=== PATIENT | male | born 1950 | race Caucasian/White ===

== ENCOUNTER 2023-03-31 14:40 | Observation (INO) | payer MEDICARE, OTHER ==
[~2023-03-31] VITALS: Ht 177.8 cm; Wt 108.9 kg
[2023-03-31 14:59] VITALS: BP_SYST 108; PULSE 63; RESP 19; TEMP 97.7; O2SAT 96
[2023-03-31] MEDS ORDERED: guaiFENesin/DEXTROMETHORPHAN 10 ML UDC PO ONE ×2 (15:15→17:00)
[2023-03-31] MEDS ORDERED: IBUPROFEN 800 MG TABLET PO ONE (16:30)
[2023-03-31] MEDS ORDERED: PHENAZOPYRIDINE HCL 100 MG TABLET PO ONE (16:30)
[2023-03-31 18:20] LABS: INFLUENZA TYPE A negative (NEGATIVE); INFLUENZA TYPE B NEGATIVE (NEGATIVE)
[2023-03-31] MEDS ORDERED: NACL 0.9% 1,000 ML IV ONE ×2 (18:30→19:45)
[2023-03-31 18:54] LABS: BASOPHILS # (AUTO) 0.1 K/uL (0.0-0.2); BASOPHILS % (AUTO) 0.5 % (0.0-2.0); EOSINOPHILS % (AUTO) 0.4 % (0.0-4.0); HEMOGLOBIN 15.5 g/dL (14.0-18.0); LYMPHOCYTES # (AUTO) 1.5 K/uL (1.0-5.5); LYMPHOCYTES % (AUTO) 12.3 % (20.5-51.5); MEAN CORPUSCULAR HEMOGLOBIN 32 pg (27-31); MEAN CORPUSCULAR HGB CONC 34 % (32-36); MEAN CORPUSCULAR VOLUME 94 fL (79.0-98.0); MONOCYTES # (AUTO) 0.6 K/uL (0.0-1.0); MONOCYTES % (AUTO) 4.8 % (1.7-9.3); PLATELET COUNT (AUTO) 205 K/uL (130-430); RED BLOOD CELL COUNT(AUTO) 4.91 MIL/uL (4.2-6.2); RED CELL DISTRIBUTION WIDTH 14.8 % (9.0-15.0); WHITE BLOOD COUNT (AUTO) 12.2 K/uL (4.8-10.8)
[2023-03-31 19:18] LABS: ALBUMIN 3.9 g/dL (3.4-4.8); ANION GAP 8 (5-15); ASPARTATE AMINOTRANSFERASE 12 U/L (10-37); CARBON DIOXIDE 27 mmol/L (23-29); CHLORIDE 101 mmol/L (98-107); CREATININE 1.59 mg/dL (0.55-1.30); FREE T4 (FREE THYROXINE) 1.2 ng/dl (0.8-1.5); GLUCOSE 102 mg/dL (74-106); POTASSIUM 4.7 mmol/L (3.5-5.1); SODIUM SERUM 136 mmol/L (136-145); THYROID STIMULATING HORMONE 3.51 uIu/mL (0.36-3.74); TOTAL BILIRUBIN 1.3 mg/dL (0.0-1.0); TOTAL PROTEIN, SERUM 7.3 g/dL (6.4-8.3); UREA NITROGEN, BLOOD 23 mg/dL (8-21)
[2023-03-31 19:52] LABS: ALANINE AMINOTRANSFERASE 7 U/L (12-78)
[2023-03-31] MEDS ORDERED: LOPERAMIDE HCL 2 MG CAPSULE PO ONE (20:30)
[2023-03-31] MEDS ORDERED: SIMV-345 PO (20:49)
[2023-03-31] MEDS ORDERED: CHOL200075 PO (20:49)
[2023-03-31] MEDS ORDERED: TOPXL100 PO (20:49)
[2023-03-31] MEDS ORDERED: ASPI-858 PO (20:49)
[2023-03-31] MEDS ORDERED: LOSA-415 PO (20:49)
[2023-03-31] MEDS ORDERED: ACET-2634 PO (20:49)
[2023-03-31] MEDS ORDERED: MELA10TA2 PO (20:49)
[2023-03-31] MEDS ORDERED: D5/0.45 NS 1,000 ML IV ONE (23:00)
[2023-04-01] MEDS ORDERED: ACETAMINOPHEN 500 MG TABLET PO PRN (06:45)
[2023-04-01 07:41] LABS: ALBUMIN 3.1 g/dL (3.4-4.8); ANION GAP 9 (5-15); ASPARTATE AMINOTRANSFERASE 10 U/L (10-37); CALCIUM 8.5 mg/dL (8.4-11.0); CARBON DIOXIDE 24 mmol/L (23-29); CHLORIDE 102 mmol/L (98-107); CREATININE 1.76 mg/dL (0.55-1.30); GLUCOSE 110 mg/dL (74-106); POTASSIUM 3.4 mmol/L (3.5-5.1); SODIUM SERUM 135 mmol/L (136-145); TOTAL BILIRUBIN 0.7 mg/dL (0.0-1.0); UREA NITROGEN, BLOOD 29 mg/dL (8-21)
[2023-04-01 08:25] LABS: ALANINE AMINOTRANSFERASE 3 U/L (12-78)
[2023-04-01] MEDS: ASPIRIN 325 MG TABLET PO SCH (09:13)
[2023-04-01] MEDS: SIMVASTATIN 40 MG TABLET PO SCH (09:14)
[2023-04-01 12:15] VITALS: BP_SYST 148; PULSE 50; RESP 16; TEMP 97.7
[2023-04-01 12:57] VITALS: PULSE 50; RESP 16; TEMP 97.9; O2SAT 98
[2023-04-01 17:30] VITALS: BP_SYST 121; PULSE 58; RESP 18; TEMP 97.8; O2SAT 96
[2023-04-01 20:00] VITALS: BP_SYST 127; PULSE 49; RESP 18; TEMP 97.8; O2SAT 98
[2023-04-02 00:48] VITALS: BP_SYST 141; PULSE 53; RESP 18; TEMP 97.2; O2SAT 98
[2023-04-02 08:29] VITALS: BP_SYST 143; PULSE 54; RESP 18; TEMP 97; O2SAT 97
[2023-04-02] MEDS ORDERED: METOPROLOL SUCCINATE 50 MG TAB.SR.24H (TOPROL XL) PO SCH (09:00)
[2023-04-02] MEDS: ASPIRIN 325 MG TABLET PO SCH (09:05)
[2023-04-02] MEDS: SIMVASTATIN 40 MG TABLET PO SCH (09:05)
[2023-04-02] MEDS: D5/0.45 NS 1,000 ML IV SCH (12:54)
[2023-04-02] MEDS: METOPROLOL SUCCINATE 50 MG TAB.SR.24H (TOPROL XL) PO SCH (13:03)
[2023-04-02 19:41] VITALS: BP_SYST 121; BP_SYST 123; PULSE 54; PULSE 60; PULSE 63
[2023-04-02 21:15] VITALS: BP_SYST 132; BP_SYST 133; PULSE 52; PULSE 55; RESP 18; TEMP 98.6; O2SAT 99
[2023-04-02 23:14] LABS: BILIRUBIN,URINE NEGATIVE (NEGATIVE); BLOOD, URINE NEGATIVE (NEGATIVE); CLARITY/URINE Clear (CLEAR); COLOR,URINE YELLOW (YELLOW); GLUCOSE,URINE NEGATIVE (NEGATIVE); KETONES,URINE NEGATIVE (NEGATIVE); LEUKOCYTE ESTERASE ,URINE NEGATIVE (NEGATIVE); NITRITE, URINE NEGATIVE (NEGATIVE); PH,URINE 6.5 (5.0-8.0); PROTEIN URINE NEGATIVE (NEGATIVE); UROBILINOGEN,URINE 0.2 (0.2-1.0)
[2023-04-03 00:15] VITALS: BP_SYST 117; PULSE 50; RESP 18; TEMP 98.4; O2SAT 98
[2023-04-03 00:16] VITALS: BP_SYST 100; PULSE 50; RESP 18; O2SAT 98
[2023-04-03 00:17] VITALS: BP_SYST 132; PULSE 61
[2023-04-03] MEDS: D5/0.45 NS 1,000 ML IV SCH ×2 (03:43→11:13)
[2023-04-03 08:16] VITALS: BP_SYST 159; PULSE 55; RESP 19; TEMP 97.9; O2SAT 100
[2023-04-03] MEDS: ASPIRIN 325 MG TABLET PO SCH (08:35)
[2023-04-03] MEDS: SIMVASTATIN 40 MG TABLET PO SCH (08:35)
[2023-04-03] MEDS: METOPROLOL SUCCINATE 50 MG TAB.SR.24H (TOPROL XL) PO SCH (08:37)
[2023-04-03] MEDS ORDERED: METO-542 PO (11:23)
[2023-04-03] MEDS ORDERED: AMLO2.5T2 PO (11:26)
[2023-04-03 12:52] VITALS: BP_SYST 142; PULSE 58; RESP 18; TEMP 98.1; O2SAT 97
[2023-04-03 14:34] LABS: ALBUMIN 3.4 g/dL (3.4-4.8); ANION GAP 7 (5-15); ASPARTATE AMINOTRANSFERASE 12 U/L (10-37); CALCIUM 8.5 mg/dL (8.4-11.0); CARBON DIOXIDE 27 mmol/L (23-29); CHLORIDE 103 mmol/L (98-107); CREATININE 1.72 mg/dL (0.55-1.30); GLUCOSE 112 mg/dL (74-106); SODIUM SERUM 137 mmol/L (136-145); THYROID STIMULATING HORMONE 2.73 uIu/mL (0.34-4.82); TOTAL BILIRUBIN 0.4 mg/dL (0.0-1.0); TOTAL PROTEIN, SERUM 6.5 g/dL (6.4-8.3); UREA NITROGEN, BLOOD 24 mg/dL (8-21)
[2023-04-03 14:44] LABS: ALANINE AMINOTRANSFERASE 5 U/L (12-78)
[2023-04-03 15:50] VITALS: BP_SYST 149; PULSE 82; RESP 18; TEMP 97.9; O2SAT 100
== END 2023-04-03 16:15 | disposition home or self-care (01) ==
LOC: SED 14:40 → INTOOBSV 22:55 → STU 22:55
PROVIDERS: ADMIT Specialist; ATTEND Specialist
DX: R42 Dizziness and giddiness (principal); Z20.822 Contact with and (suspected) exposure to COVID-19; R00.1 Bradycardia, unspecified; E86.0 Dehydration; I10 Essential (primary) hypertension; E78.5 Hyperlipidemia, unspecified; J44.9 Chronic obstructive pulmonary disease, unspecified; N28.9 Disorder of kidney and ureter, unspecified; F10.11 Alcohol abuse, in remission; R91.1 Solitary pulmonary nodule; Z87.891 Personal history of nicotine dependence; Z79.82 Long term (current) use of aspirin; Z79.899 Other long term (current) drug therapy
CPT/HCPCS: 80053 ×3; 83880; 84439; 84443 ×2; 85025; 84484; 36415 ×3; 93005 ×2; 71045; 99285; 96360; 87804 ×2; 87426; 96361 ×3; 93306; 97530 ×2; 97116 ×2; 97163; 81003; 97110; G0378 ×4

== ENCOUNTER 2023-04-07 04:07 | Emergency (ER) | payer OTHER ==
[~2023-04-07] VITALS: Ht 177.8 cm; Wt 90.7 kg
[~2023-04-07 04:07] MED LIST: ACET-2634 PO; AMLO2.5T2 PO; ASPI-858 PO; CHOL200075 PO; LOSA-415 PO; MELA10TA2 PO; METO-542 PO; SIMV-345 PO
[2023-04-07] MEDS ORDERED: MORPHINE 4 MG INJ. 4 MG/ML VIAL IVP ONE (04:23)
[2023-04-07] MEDS ORDERED: NITROGLYCERIN 1 INCH (GM) OINT. TP ONE (04:23)
[2023-04-07 04:27] VITALS: BP_SYST 139; PULSE 106; RESP 18; TEMP 98; O2SAT 97
[2023-04-07] MEDS ORDERED: ASPIRIN 325 MG TABLET PO ONE (04:30)
[2023-04-07 05:30] LABS: BASOPHILS # (AUTO) 0.1 K/uL (0.0-0.2); BASOPHILS % (AUTO) 0.7 % (0.0-2.0); EOSINOPHILS % (AUTO) 0.2 % (0.0-4.0); HEMATOCRIT 37.7 % (36-54); HEMOGLOBIN 12.8 g/dL (14.0-18.0); LYMPHOCYTES # (AUTO) 0.9 K/uL (1.0-5.5); LYMPHOCYTES % (AUTO) 9.9 % (20.5-51.5); MEAN CORPUSCULAR HEMOGLOBIN 32 pg (27-31); MEAN CORPUSCULAR HGB CONC 34 % (32-36); MEAN CORPUSCULAR VOLUME 94 fL (79.0-98.0); MONOCYTES # (AUTO) 0.6 K/uL (0.0-1.0); MONOCYTES % (AUTO) 7.3 % (1.7-9.3); NEUTROPHILS # (AUTO) 7.2 K/uL (1.8-7.7); NEUTROPHILS % (AUTO) 81.9 % (40.0-70.0); PLATELET COUNT (AUTO) 182 K/uL (130-430); RED BLOOD CELL COUNT(AUTO) 4.02 MIL/uL (4.2-6.2); WHITE BLOOD COUNT (AUTO) 8.8 K/uL (4.8-10.8)
[2023-04-07] MEDS ORDERED: ESCI-6 PO (05:38)
[2023-04-07 05:42] LABS: ANION GAP 10 (5-15); CALCIUM 8.2 mg/dL (8.4-11.0); CARBON DIOXIDE 24 mmol/L (23-29); CHLORIDE 104 mmol/L (98-107); CREATININE 1.85 mg/dL (0.55-1.30); GLUCOSE 106 mg/dL (74-106); POTASSIUM 3.9 mmol/L (3.5-5.1); SODIUM SERUM 138 mmol/L (136-145); UREA NITROGEN, BLOOD 23 mg/dL (8-21)
[2023-04-07 05:49] LABS: ALANINE AMINOTRANSFERASE 6 U/L (12-78); ALBUMIN 3.1 g/dL (3.4-4.8); ASPARTATE AMINOTRANSFERASE 12 U/L (10-37); TOTAL BILIRUBIN 0.6 mg/dL (0.0-1.0)
[2023-04-07 07:08] VITALS: TEMP 98
[2023-04-07 11:13] VITALS: BP_SYST 116; PULSE 83; RESP 16; O2SAT 95
== END 2023-04-07 12:00 | disposition home or self-care (01) ==
LOC: SED 04:07
DX: R07.9 Chest pain, unspecified (principal); R06.02 Shortness of breath; J44.9 Chronic obstructive pulmonary disease, unspecified; I10 Essential (primary) hypertension; E78.5 Hyperlipidemia, unspecified; Z79.899 Other long term (current) drug therapy
CPT/HCPCS: 99285; 96374; 71045; 80053; 83880; 85025; 87081; 84484; 36415; 93005; J2270

== ENCOUNTER 2023-04-29 20:02 | Inpatient (IN) | payer OTHER ==
[~2023-04-29] VITALS: Ht 175.3 cm; Wt 68.0 kg
[~2023-04-29 20:02] MED LIST changes: -AMLO2.5T2 PO; +ESCI-6 PO
[2023-04-29 20:36] VITALS: BP_SYST 124; PULSE 66; RESP 18; TEMP 98.3; O2SAT 97
[2023-04-29 22:11] LABS: BASOPHILS % (AUTO) 0.4 % (0.0-2.0); EOSINOPHILS % (AUTO) 0.1 % (0.0-4.0); HEMOGLOBIN 12.3 g/dL (14.0-18.0); LYMPHOCYTES # (AUTO) 1.1 K/uL (1.0-5.5); LYMPHOCYTES % (AUTO) 8.7 % (20.5-51.5); MEAN CORPUSCULAR HEMOGLOBIN 32 pg (27-31); MEAN CORPUSCULAR HGB CONC 34 % (32-36); MEAN CORPUSCULAR VOLUME 93 fL (79.0-98.0); MONOCYTES % (AUTO) 8.2 % (1.7-9.3); NEUTROPHILS # (AUTO) 10.3 K/uL (1.8-7.7); NEUTROPHILS % (AUTO) 82.6 % (40.0-70.0); PLATELET COUNT (AUTO) 243 K/uL (130-430); RED BLOOD CELL COUNT(AUTO) 3.87 MIL/uL (4.2-6.2); RED CELL DISTRIBUTION WIDTH 15.5 % (9.0-15.0); WHITE BLOOD COUNT (AUTO) 12.4 K/uL (4.8-10.8)
[2023-04-29 22:31] LABS: ALANINE AMINOTRANSFERASE 17 U/L (12-78); ALBUMIN 3.1 g/dL (3.4-4.8); ANION GAP 7 (5-15); ASPARTATE AMINOTRANSFERASE 13 U/L (10-37); CALCIUM 7.6 mg/dL (8.4-11.0); CARBON DIOXIDE 26 mmol/L (23-29); CHLORIDE 106 mmol/L (98-107); CREATININE 2.18 mg/dL (0.55-1.30); GLUCOSE 117 mg/dL (74-106); POTASSIUM 3.5 mmol/L (3.5-5.1); SODIUM SERUM 139 mmol/L (136-145); TOTAL BILIRUBIN 0.5 mg/dL (0.0-1.0); TOTAL PROTEIN, SERUM 6.1 g/dL (6.4-8.3); UREA NITROGEN, BLOOD 42 mg/dL (8-21)
[2023-04-30] MEDS: D5NS 1,000 ML IV SCH ×2 (01:55→09:44)
[2023-04-30] MEDS ORDERED: HYG25 PO (02:49)
[2023-04-30] MEDS ORDERED: CITALOPRAM HYDROBROMIDE 20 MG TABLET PO SCH (09:00)
[2023-04-30] MEDS ORDERED: SIMVASTATIN 40 MG TABLET PO SCH (09:00)
[2023-04-30] MEDS ORDERED: METOPROLOL SUCCINATE 25 MG TAB.SR.24H (TOPROL XL) PO SCH (09:00)
[2023-04-30] MEDS ORDERED: ASPIRIN 81 MG TAB.CHEW PO SCH (09:00)
[2023-04-30] MEDS ORDERED: ESCITALOPRAM OXALATE 10 MG TABLET PO SCH (09:00)
[2023-04-30 09:30] VITALS: BP_SYST 113; PULSE 68; RESP 24; TEMP 97.7; O2SAT 99
[2023-04-30 11:00] VITALS: O2SAT 96
[2023-04-30 12:00] VITALS: BP_SYST 133; PULSE 95; RESP 20; TEMP 97.5; O2SAT 61
== END 2023-04-30 16:45 | disposition home or self-care (01) | DRG 641 ==
LOC: SED 20:02 → STU 04-30 00:32
PROVIDERS: ADMIT Specialist; ATTEND Specialist
DX: E86.0 Dehydration (principal); I47.19 Other supraventricular tachycardia; N18.4 Chronic kidney disease, stage 4 (severe); Z59.01 Sheltered homelessness; E44.1 Mild protein-calorie malnutrition; E78.5 Hyperlipidemia, unspecified; J44.9 Chronic obstructive pulmonary disease, unspecified; I25.10 Atherosclerotic heart disease of native coronary artery without angina pectoris; G93.89 Other specified disorders of brain; I12.9 Hypertensive chronic kidney disease with stage 1 through stage 4 chronic kidney disease, or unspecified chronic kidney disease; Z91.09 Other allergy status, other than to drugs and biological substances; Z79.899 Other long term (current) drug therapy; Z79.82 Long term (current) use of aspirin; Z86.73 Personal history of transient ischemic attack (TIA), and cerebral infarction without residual deficits; Z87.891 Personal history of nicotine dependence; Z91.119 Patient's noncompliance with dietary regimen due to unspecified reason; Z91.148 Patient's other noncompliance with medication regimen for other reason; Z79.1 Long term (current) use of non-steroidal anti-inflammatories (NSAID); Z68.22 Body mass index [BMI] 22.0-22.9, adult
CPT/HCPCS: 36415; 70450-TC; 71045; 76376; 80053; 83880; 84484; 85025; 87081; 93005; 99285; G0378

== ENCOUNTER 2023-07-04 19:04 | Emergency (ER) | payer OTHER ==
[~2023-07-04] VITALS: Ht 177.8 cm; Wt 72.6 kg
[~2023-07-04 19:04] MED LIST changes: +HYG25 PO
[2023-07-04 19:11] VITALS: BP_SYST 142; PULSE 58; RESP 20; TEMP 97.6; O2SAT 97
[2023-07-04] MEDS ORDERED: ASPIRIN 81 MG TAB.CHEW PO ONE (20:00)
[2023-07-04] MEDS ORDERED: METOPROLOL SUCCINATE 50 MG TAB.SR.24H (TOPROL XL) PO SCH (20:30)
[2023-07-04 20:33] LABS: BASOPHILS % (AUTO) 0.4 % (0.0-2.0); EOSINOPHILS % (AUTO) 0.1 % (0.0-4.0); HEMATOCRIT 38.9 % (36-54); HEMOGLOBIN 13.2 g/dL (14.0-18.0); LYMPHOCYTES # (AUTO) 1.2 K/uL (1.0-5.5); LYMPHOCYTES % (AUTO) 9.8 % (20.5-51.5); MEAN CORPUSCULAR HEMOGLOBIN 32 pg (27-31); MEAN CORPUSCULAR HGB CONC 34 % (32-36); MEAN CORPUSCULAR VOLUME 95 fL (79.0-98.0); MONOCYTES # (AUTO) 0.8 K/uL (0.0-1.0); MONOCYTES % (AUTO) 6.7 % (1.7-9.3); NEUTROPHILS # (AUTO) 9.9 K/uL (1.8-7.7); PLATELET COUNT (AUTO) 254 K/uL (130-430); RED BLOOD CELL COUNT(AUTO) 4.12 MIL/uL (4.2-6.2); RED CELL DISTRIBUTION WIDTH 15.2 % (9.0-15.0); WHITE BLOOD COUNT (AUTO) 11.9 K/uL (4.8-10.8)
[2023-07-04] MEDS ORDERED: METOPROLOL SUCCINATE 50 MG TAB.SR.24H (TOPROL XL) PO ONE (20:45)
[2023-07-04] MEDS ORDERED: METOPROLOL TARTRATE 50 MG TABLET ONE (20:49)
[2023-07-04 21:04] LABS: ANION GAP 11 (5-15); CALCIUM 9.7 mg/dL (8.4-11.0); CARBON DIOXIDE 23 mmol/L (23-29); CHLORIDE 103 mmol/L (98-107); CREATININE 1.74 mg/dL (0.55-1.30); GLUCOSE 103 mg/dL (74-106); POTASSIUM 4.1 mmol/L (3.5-5.1); SODIUM SERUM 137 mmol/L (136-145); UREA NITROGEN, BLOOD 36 mg/dL (8-21)
[2023-07-04 21:18] LABS: ALCOHOL, BLOOD < 3 mg/dL (<10)
[2023-07-04] MEDS ORDERED: METO50TA7 PO (23:07)
[2023-07-04 23:50] VITALS: BP_SYST 118; PULSE 71; RESP 16; TEMP 97.5; O2SAT 98
== END 2023-07-04 23:50 | disposition home or self-care (01) ==
LOC: SED 19:04
DX: R42 Dizziness and giddiness (principal); R00.2 Palpitations; I10 Essential (primary) hypertension; J44.9 Chronic obstructive pulmonary disease, unspecified; I48.91 Unspecified atrial fibrillation; Z79.899 Other long term (current) drug therapy
CPT/HCPCS: 99285; 71045; 80048; 83880; 85025; 84484; 36415; 93005; G0482